=== PATIENT | female | born 1990 | race Caucasian/White ===

== ENCOUNTER → 2021-05-18 | Outpatient (CLI) | payer BC ==
--- NOTE | 2021-05-18 11:31 | US ---
EXAMINATION TYPE: US pelvic complete DATE OF EXAM: 05/18/2021 COMPARISON: NONE CLINICAL HISTORY: N91.1 Amenorrhea. Patient states having hx of cysts. TECHNIQUE: Transabdominal (TA) Date of LMP: 04/17/2021, [id number] EXAM MEASUREMENTS: Uterus: 6.9 x 4.2x 2.9 cm Endometrial Stripe: 0.6 cm Right Ovary: 2.9 x 2.4 x 1.8 cm Left Ovary: 3.1 x 2.2 x 1.9 cm 1. Uterus: Anteverted wnl 2. Endometrium: wnl 3. Right Ovary: follicles seen 4. Left Ovary: follicles seen 5. Bilateral Adnexa: wnl 6. Posterior cul-de-sac: no free fluid IMPRESSION: Unremarkable pelvic ultrasound.
== END | disposition home or self-care (01) ==
LOC: RADUSWWP 10:06
PROVIDERS: ATTEND Obstetrics & Gynecology
DX: N91.2 Amenorrhea, unspecified (principal)
CPT/HCPCS: 76856

== ENCOUNTER 2022-06-01 06:00 | Inpatient (IN) | payer BC ==
--- NOTE | 2022-05-31 20:58 | P.HPOB ---
History of Present Illness H&P Date: 05/31/22 Chief Complaint: Induction of labor This is a 32 y.o. female, 2, para 0, with an estimated date of confinement of 06/01/2022, estimated gestational age of 40-0/7 weeks, who presents for induction of labor due to gestational diabetes. She feels irregular contractions. She was diagnosed with gestational diabetes and is on Metformin. surveillance has been reassuring. labs: GC/Chlamydia/Trich-neg Hepatitis B surface antigen-neg RPR-NR Rubella-immune Blood type-O+ Antibody screen-neg HIV-NR Hemoglobin-13.3 Random glucose 83 1 hr. GTT-174; 3 hr. GTT- 2 values high GBS-neg OB Hx: . 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 Works at [employer] Review of Systems Constitutional: Reports chronic headaches, Denies chills, Denies fever Eyes: denies blurred vision, denies pain Ears, nose, mouth and throat: Denies headache, Denies sore throat Cardiovascular: Denies chest pain, Denies shortness of breath Respiratory: Denies cough Gastrointestinal: Reports abdominal pain (irregular ctxs), Denies diarrhea, Denies nausea, Denies vomiting Genitourinary: Reports pelvic pain, Reports Musculoskeletal: Reports low back pain Integumentary: Denies pruritus, Denies rash Neurological: Denies numbness, Denies weakness Psychiatric: Denies anxiety, Denies depression Past Medical History Additional Past Medical History / Comment(s): TMJ History of Any Multi-Drug Resistant Organisms: None Reported Past Surgical History: No Surgical Hx Reported Past Anesthesia/Blood Transfusion Reactions: No Reported Reaction Past Psychological History: No Psychological Hx Reported Smoking Status: Never smoker Past Alcohol Use History: None Reported Past Drug Use History: None Reported - Past Family History Father Family Medical History: Diabetes Mellitus Medications and Allergies Home Medications Medication Instructions Recorded Confirmed Type Vit No.180/Iron/Folic 1 each PO 05/31/22 History [ Plus Tablet] metFORMIN HCL ER [Glucophage XR] 1,000 mg PO DAILY 05/31/22 05/31/22 History Allergies Allergy/AdvReac Type Severity Reaction Status Date / Time sulfamethoxazole Allergy Unknown Verified 11/04/21 14:03 [From Bactrim] trimethoprim [From Bactrim] Allergy Unknown Verified 11/04/21 14:03 Exam Osteopathic Statement: *. No significant issues noted on an osteopathic structural exam other than those noted in the History and Physical/Consult. HEENT: within normal limits Heart: regular rate and rhythm Lungs: clear to auscultation bilaterally Abdomen: , non-tender Cervix: 2 cm/90%/-1 heart tones: 125 baseline Extremities: neg Cipriano's Assessment and Plan (1) 40 weeks gestation of Status: Acute Code(s): Z3A.40 - 40 WEEKS GESTATION OF SNOMED Code(s): 00837773 (2) Gestational diabetes mellitus (GDM) Status: Acute Code(s): O24.419 - GESTATIONAL DIABETES MELLITUS IN , UNSP CONTROL SNOMED Code(s): 77669054 Plan: Proceed with oxytocin induction of labor. Expectant management. Epidural anesthesia if desired.
[2022-06-01] MEDS ORDERED: LIDOCAINE 0.5% (PF) 5 MG/ML (50 ML SDV) SQ PRN (06:09)
[2022-06-01] MEDS ORDERED: TERBUTALINE 1 MG/ML VIAL SQ PRN (06:09)
[2022-06-01] MEDS ORDERED: LIDOCAINE 1% (10MG/ML) FOR IV START INTRADERMA PRN (06:09)
[2022-06-01] MEDS ORDERED: OXYTOCIN 10 UNIT/ML 1 ML VIAL IM PRN (06:09)
[2022-06-01] MEDS ORDERED: METHYLERGONOVINE 0.2 MG/ML 1 ML AMP IM PRN (06:09)
[2022-06-01] MEDS ORDERED: OXYTOCIN 30 UNITS/500 ML NS 30 UNIT in SALINE 1 500ML.BAG IV SCH (06:09)
[2022-06-01] MEDS ORDERED: CARBOPROST TROMETHAMINE 250 MCG/ML 1 ML AMP IM PRN (06:09)
[2022-06-01] MEDS: LACTATED RINGERS 1,000 ML IV SCH ×2 (06:15→09:47)
[2022-06-01 06:26] LABS: Basophils # (A) 0.1 k/uL (0-0.2); Basophils % (A) 1 %; Eosinophils # (A) 0.1 k/uL (0-0.7); Eosinophils % (A) 1 %; HCT 38.7 % (34.0-46.0); HGB 12.4 gm/dL (11.4-16.0); Lymphocytes # (A) 1.6 k/uL (1.0-4.8); Lymphocytes % (A) 26 %; MCH 28.8 pg (25.0-35.0); MCV 89.9 fL (80.0-100.0); Mean Platelet Volume 8.5; Monocytes # (A) 0.3 k/uL (0-1.0); Monocytes % (A) 5 %; Neutrophils # (A) 4.2 k/uL (1.3-7.7); Neutrophils % (A) 66 %; Platelet Count 238 k/uL (150-450); RDW 14.2 % (11.5-15.5); WBC 6.3 k/uL (3.8-10.6)
[2022-06-01 07:20] LABS: Glucose,Whole Blood 86 mg/dL (70-110)
[2022-06-01 09:15] LABS: Glucose,Whole Blood 81 mg/dL (70-110)
[2022-06-01 12:12] LABS: Glucose,Whole Blood 80 mg/dL (70-110)
[2022-06-01] MEDS ORDERED: diphenhydrAMINE 50 MG CAP PO PRN (15:38)
[2022-06-01] MEDS ORDERED: diphenhydrAMINE 50 MG/ML 1 ML VIAL IVP PRN ×2 (15:38)
[2022-06-01] MEDS ORDERED: LANOLIN CREAM 5 GM TUBE TOPICAL PRN (15:38)
[2022-06-01] MEDS ORDERED: BENZOCAINE/MENTHOL SPRAY 1 GM/SPRAY AEROSOL TOPICAL PRN (15:38)
[2022-06-01] MEDS ORDERED: HYDROCORTISONE 2.5% RECTAL CREAM 30 GM TUBE RECTAL PRN (15:38)
[2022-06-01] MEDS ORDERED: SIMETHICONE 80 MG CHEWABLE PO PRN (15:38)
[2022-06-01] MEDS ORDERED: ZOLPIDEM 5 MG TAB PO PRN (15:38)
[2022-06-01] MEDS ORDERED: diphenhydrAMINE 25 MG CAP PO PRN (15:38)
[2022-06-01] MEDS ORDERED: ROPIVACAINE 100 MG, fentaNYL (PF). 200 MCG in SODIUM CHLORIDE 0.9% 76 ML EPIDURAL ONE (16:45)
--- NOTE | 2022-06-01 17:47 | P.PROBDLV ---
Vaginal Delivery Note - . Vaginal Delivery Note: The patient progressed to complete dilation after oxytocin induction of labor and artificial rupture membranes with clear fluid noted. She did receive epidural anesthesia. Once reaching complete, she began pushing. 's a came to a crown. With one further push, the infant's head delivered across the perineum followed by the anterior shoulder. Nose and mouth were bulb suctioned at the perineum. Nuchal cord times one was reduced around the 's body with one more push or the remainder the to deliver. Infant was placed on mother's abdomen and cord was clamped and cut. A viable male is noted with scores of 9 at 1 minute and 9 at 5 minutes. Weight was 7 lbs. 11 oz. Cord blood was obtained secondary to O+ blood type. Placenta was not ready to deliver yet and therefore inspection of the perineum revealed a second-degree perineal laceration and a periurethral laceration in the midline. These areas were anesthetized with 1% lidocaine. The second-degree perineal laceration was sutured with 3-0 and 2-0 Vicryl suture in the usual multilayer fashion. The periurethral laceration was sutured with 3-0 Vicryl suture in a running locked fashion. Next the placenta was delivered approximately 20 minutes later manually. Placenta appeared intact with a three-vessel cord and marginal cord insertion was noted. Uterus did contract well after oxytocin was given and massage was carried out. Estimated blood loss is approximately 200 mL's. Both mother and are in stable condition.
[2022-06-01] MEDS: IBUPROFEN 600 MG TAB PO PRN (20:27)
[2022-06-01] MEDS: SENNOSIDES-DOCUSATE SODIUM 1 EACH TAB PO SCH (20:28)
[2022-06-02] MEDS: ACETAMINOPHEN TAB 325 MG TAB PO PRN ×3 (02:53→19:44)
[2022-06-02 06:36] LABS: Basophils % (A) 0 %; Eosinophils # (A) 0.1 k/uL (0-0.7); Eosinophils % (A) 1 %; HCT 33.3 % (34.0-46.0); HGB 10.9 gm/dL (11.4-16.0); Lymphocytes # (A) 1.7 k/uL (1.0-4.8); Lymphocytes % (A) 17 %; MCH 29.5 pg (25.0-35.0); MCHC 32.6 g/dL (31.0-37.0); MCV 90.5 fL (80.0-100.0); Mean Platelet Volume 8.3; Monocytes # (A) 0.4 k/uL (0-1.0); Monocytes % (A) 4 %; Neutrophils # (A) 7.5 k/uL (1.3-7.7); Neutrophils % (A) 77 %; Platelet Count 200 k/uL (150-450); RBC 3.68 m/uL (3.80-5.40); RDW 14.2 % (11.5-15.5); WBC 9.8 k/uL (3.8-10.6)
--- NOTE | 2022-06-02 08:01 | P.DS ---
Providers Date of admission: 06/01/22 06:00 Expected date of discharge: 06/02/22 Attending physician: Sayra Pabon Primary care physician: Stated None - Discharge Diagnosis(es) (1) 40 weeks gestation of Current Visit: No Status: Acute (2) Gestational diabetes mellitus (GDM) Current Visit: No Status: Acute Hospital Course: This is a 32-year-old female 2 para 0 at 40-0/7 weeks who presents for induction of labor secondary to gestational diabetes. She underwent oxytocin induction of labor and delivered vaginally a viable male on 06/01/2022 with scores of 9 at 1 minute and 9 at 5 minutes and infant weight of 7 lbs. 11 oz. Her course has been uncomplicated. Lochia is decreasing. Her pain is well-controlled. She is breast-feeding. Vital signs are stable. Abdomen is soft with fundus firm and nontender. Extremities show negative Homans. Impression is status post vaginal delivery day #1. Plan is to discharge home later today. Routine instructions are given. She is advised follow-up in the office in 6 weeks for check she is advised to call the office if she has any further questions or concerns prior to her appointment. She will be given a prescription for ibuprofen. Procedures: Oxytocin induction of labor Spontaneous vaginal delivery of a viable male on 06/01/2022 Patient Condition at Discharge: Stable Plan - Discharge Summary New Discharge Prescriptions: New RX: Ibuprofen [Motrin] 600 mg PO Q6HR PRN #60 tab PRN Reason: Mild Pain (Scale 1 To 3) Continue RX: Vit No.180/Iron/Folic [ Plus Vitamin-Mineral] 1 each PO DAILY Discontinued metFORMIN HCL ER [Glucophage XR] 1,000 mg PO DAILY Discharge Medication List RX: Vit No.180/Iron/Folic [ Plus Vitamin-Mineral] 1 each PO DAILY 05/31/22 [History] RX: Ibuprofen [Motrin] 600 mg PO Q6HR PRN #60 tab 06/02/22 [Rx] Follow up Appointment(s)/Referral(s): Sayra Pabon DO [Doctor of Osteopathic Medicine] - 6 Weeks Activity/Diet/Wound Care/Special Instructions: Instructions 1. Do not begin any exercise program for 3 weeks. 2. Do not resume sexual relations for 3 weeks or longer if uncomfortable. 3. You may take tub baths or showers at any time. 4. You may use tampons if desired after 3 weeks. 5. Keep the area of episiotomy (stitches) clean and dry. 6. If you are not nursing, wear a good fitting, supportive bra during the day and limit fluid intake for at least 1 week to prevent breast engorgement. 7. Call the office, [phone], within the next week to make appointment for your 6 week checkup if it has not already been made. 8. Report any of the following occurrences to the doctor promptly: a. Heavy, excessive bleeding b. Chills, fever c. Burning or frequency of urination d. Pain or redness and breasts if nursing e. Increasing pain or swelling in episiotomy (stitches). In addition to the above instructions, the following additional should be followed: 1. No heavy lifting or straining (exercising) until after 6 week checkup. 2. Keep abdominal incision clean and dry: You may wear a dressing if more comfortable. 3. Make office appointment for 10 days after going home or as instructed by her doctor. Discharge Disposition: HOME SELF-CARE
[2022-06-02] MEDS: IBUPROFEN 600 MG TAB PO PRN ×2 (09:06→15:29)
[2022-06-02] MEDS: SENNOSIDES-DOCUSATE SODIUM 1 EACH TAB PO SCH ×2 (09:07→19:44)
[2022-06-03] MEDS: IBUPROFEN 600 MG TAB PO PRN ×2 (00:01→11:11)
[2022-06-03] MEDS: ACETAMINOPHEN TAB 325 MG TAB PO PRN ×2 (08:39→14:47)
[2022-06-03] MEDS: SENNOSIDES-DOCUSATE SODIUM 1 EACH TAB PO SCH (11:29)
[2022-06-03 11:34] VITALS: BP 117/77; PULSE 79; RESP 18; TEMP 98.3
== END 2022-06-03 15:30 | disposition home or self-care (01) | DRG 807 ==
LOC: 4FBP 06:00
PROVIDERS: ADMIT Obstetrics & Gynecology; ATTEND Obstetrics & Gynecology
PROC: 00HU33Z Insertion of Infusion Device into Spinal Canal, Percutaneous Approach (ICD-10-PCS; principal; 2022-06-01)
PROC: 0KQM0ZZ Repair Perineum Muscle, Open Approach (ICD-10-PCS; principal; 2022-06-01)
PROC: 10907ZC Drainage of Amniotic Fluid, Therapeutic from Products of Conception, Via Natural or Artificial Opening (ICD-10-PCS; principal; 2022-06-01)
PROC: 10D17Z9 Manual Extraction of Products of Conception, Retained, Via Natural or Artificial Opening (ICD-10-PCS; principal; 2022-06-01)
PROC: 3E0R3NZ Introduction of Analgesics, Hypnotics, Sedatives into Spinal Canal, Percutaneous Approach (ICD-10-PCS; principal; 2022-06-01)
PROC: 3E033VJ Introduction of Other Hormone into Peripheral Vein, Percutaneous Approach (ICD-10-PCS; principal; 2022-06-01)
PROC: 0UQMXZZ Repair Vulva, External Approach (ICD-10-PCS; principal; 2022-06-01)
PROC: 10E0XZZ Delivery of Products of Conception, External Approach (ICD-10-PCS; principal; 2022-06-01)
DX: O24.425 Gestational diabetes mellitus in childbirth, controlled by oral hypoglycemic drugs (principal); O69.81X0 Labor and delivery complicated by cord around neck, without compression, not applicable or unspecified; O70.1 Second degree perineal laceration during delivery; O71.82 Other specified trauma to perineum and vulva; O73.1 Retained portions of placenta and membranes, without hemorrhage; O43.123 Velamentous insertion of umbilical cord, third trimester; Z88.2 Allergy status to sulfonamides; Z83.3 Family history of diabetes mellitus; Z3A.40 40 weeks gestation of pregnancy; Z37.0 Single live birth
CPT/HCPCS: 85025; 86850; 86900; 86901; 88307